=== PATIENT | male | born 1975 ===

== ENCOUNTER 2020-10-21 13:50 | Emergency (ER) | payer SELFPAY ==
[2020-10-21 15:43] VITALS: BP 143/95
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
[2020-10-21] MEDS ORDERED: TETANUS,DIPH,PERTUSS(ACELL) VACCINE 0.5 ML SYRINGE IM ONE ×2 (16:47→20:45)
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
[2020-10-21] MEDS ORDERED: HYDROcodone/ACETAMINOPHEN 5-325 MG TAB PO ONE (20:34)
== END 2020-10-22 02:59 | disposition home or self-care (01) ==
LOC: ED 13:50
DX: S00.03XA Contusion of scalp, initial encounter (principal); M54.2 Cervicalgia; M54.5 Low back pain; Z79.899 Other long term (current) drug therapy; V88.9XXA Person injured in other specified (collision)(noncollision) transport accidents involving nonmotor vehicle, nontraffic, initial encounter; Y93.89 Activity, other specified; Y92.89 Other specified places as the place of occurrence of the external cause; Y99.8 Other external cause status
CPT/HCPCS: 70450; 72070; 72100; 72125; 90471; 90715